=== PATIENT | male | born 1955 | race African-American/Black ===

== ENCOUNTER 2021-08-26 16:37 | Emergency (ER) | payer OTHER ==
[~2021-08-26] VITALS: Ht 172.7 cm; Wt 83.9 kg
[~2021-08-26 16:37] MED LIST: ADVAIR HFA115 MCG/21; ALBUTEROL2.5 MG/0.5 IH; ALLERGY10 M1 PO; TUSSIONEX PENN473 ML PO; ZPAK PO
[2021-08-26] MEDS ORDERED: FLEXERIL PO (19:37)
[2021-08-26] MEDS ORDERED: IBU600 MG PO (19:37)
[2021-08-26 19:50] VITALS: BP 165/93
== END 2021-08-26 19:52 | disposition home or self-care (01) ==
LOC: ER 16:37
DX: S13.4XXA Sprain of ligaments of cervical spine, initial encounter (principal); S29.012A Strain of muscle and tendon of back wall of thorax, initial encounter; J45.909 Unspecified asthma, uncomplicated; E78.5 Hyperlipidemia, unspecified; Z91.09 Other allergy status, other than to drugs and biological substances; I25.10 Atherosclerotic heart disease of native coronary artery without angina pectoris; I10 Essential (primary) hypertension; Z79.51 Long term (current) use of inhaled steroids; Z79.891 Long term (current) use of opiate analgesic; Z79.899 Other long term (current) drug therapy; Z88.2 Allergy status to sulfonamides; V49.49XA Driver injured in collision with other motor vehicles in traffic accident, initial encounter; Y93.89 Activity, other specified; Y92.89 Other specified places as the place of occurrence of the external cause; Y99.8 Other external cause status

== ENCOUNTER 2021-12-05 08:40 | Inpatient (IN) | payer MEDICARE ==
[~2021-12-05] VITALS: Ht 172.7 cm; Wt 80.1 kg
[~2021-12-05 08:40] MED LIST changes: +FLEXERIL PO; +IBU600 MG PO
[2021-12-05 08:41] VITALS: BP 172/102
[2021-12-05] MEDS ORDERED: LOSARTAN POTASS50 MG PO (08:47)
[2021-12-05] MEDS ORDERED: SINGULAIR 10 MG10 M1 PO (08:48)
[2021-12-05 09:03] LABS: ABSOLUTE NEUTROPHILS 5.3 thou/uL (1.4-8.2); BASOPHILS 0.6 % (0.0-2.0); EOSINOPHILS 2.6 % (0.0-3.0); HEMATOCRIT 46.2 % (42.0-52.0); LYMPHOCYTES 31.4 % (24.0-44.0); MCH 30.2 pg (26.0-34.0); MCHC 34.7 g/dL (28.0-37.0); MONOCYTES 8.8 % (1.0-8.0); PLATELET COUNT 293 thou/uL (150-400); POLYS 56.6 % (36.0-66.0); RBC 5.31 mil/uL (4.50-6.00); RDW 14.5 % (10.5-14.5); WBC 9.3 thou/uL (4.0-11.0)
[2021-12-05 09:17] LABS: CALCIUM 9.1 mg/dL (8.5-10.1); CREATININE 1.1 mg/dL (0.7-1.3); POTASSIUM 3.8 mmol/L (3.5-5.1)
[2021-12-05 09:28] LABS: ALBUMIN 3.9 g/dL (3.4-5.0); TOTAL BILIRUBIN 0.8 mg/dL (0.2-1.0); TOTAL PROTEIN 7.6 g/dL (6.4-8.2)
[2021-12-05 11:42] VITALS: BP 159/89
[2021-12-05 12:16] VITALS: BP 144/75
[2021-12-05 12:25] VITALS: BP 148/72
--- NOTE | 2021-12-05 13:09 | NUR ---
PT WAS TRANSFERRED FROM ER AND ARRIVED ON THE UNIT AT APPROXIMATELY 1225. PT A&OX4 AND COMMUNICATING NEEDS TO STAFF APPROPRIATELY. TELE MONITORING WAS STARTED, FALL PREVENTION EDUCATION PROVIDED AND SIGNED, ROOM ORIENTATION PROVIDED, CALL LIGHT INSTRUCTIONS PROVIDED, NEW ADMIT VITALS AND RHYTHM STRIP OBTAINED. PT HAS SOME CHEST PAIN 3/, CARDIOLOGY IS AWARE.
[2021-12-05 15:43] VITALS: BP 149/71
--- NOTE | 2021-12-05 16:35 | NUR ---
PT TRANSFERRED TO THE UNIT FROM THE ER. PT A&OX4 AND COMMUNICATING NEEDS TO STAFF APPROPRIATELY. PT HAD SOME CHEST PAIN UPON ARRIVAL TO THE UNIT. PT GIVEN TYLENOL AND NITRO, PAIN SUBSIDED. PT AMBULATED TO THE BATHROOM INDEPENDENTLY AND VOIDED WITHOUT ISSUE. PT DENIES NAUSEA, VOMITING, UPSET STOMACH, OR FEELING UNSTEADY ON THEIR FEET. PT HAD A GOOD APPETITE AND CONSUMED SNACKS AND MEALS WELL.
[2021-12-05 20:00] VITALS: BP 146/78
[2021-12-06] VITALS: BP 151/78
--- NOTE | 2021-12-06 02:13 | NUR ---
SLEEPING PAST MOROPHINE AT 2200. PATIENT STATES HIS BACK REALLY HURTS WITH MOVEMENT AND SPASMS WHICH MAKES HIM HURT ALL OVER INCLUDING CHEST AND ABDOMEN. STATES WHEN BACK SPASMS IT JOLTS EVERYTHING. REFUSES FURTHER MEDICATION AT THIS TIME STATING HE IS GOING BACK TO SLEEP. ENCOURAGED TO CALL IF HE IS UNABLE TO FALL BACK ASLEEP. NPO FOR AM STRESS TEST. CONTINUE TO ASSES.
[2021-12-06 03:05] LABS: CHOLESTEROL 170 mg/dL (<200); HDL CHOLESTEROL 68 mg/dL (>40); LDL CHOLESTEROL 92 mg/dL (<100); TC:HDL 2.5 Ratio (Not establshd); TRIGLYCERIDE 51 mg/dL (<150); VLDL 10 mg/dL (<40)
[2021-12-06 03:06] LABS: SERUM ASSESSMENT Clear
[2021-12-06 03:09] LABS: CALCIUM 8.4 mg/dL (8.5-10.1); POTASSIUM 3.7 mmol/L (3.5-5.1)
[2021-12-06 04:00] VITALS: BP 149/77
--- NOTE | 2021-12-06 06:19 | NUR ---
SLEEPING PAST FLEXERIL. NO PRESENT COMPLAINTS
--- NOTE | 2021-12-06 07:39 | EKG ---
[address] [place] [address] ELECTROCARDIOGRAM REPORT Name: HUMBERTO LAZCANO Yasmine Room #: 207- ADM IN M.R.#: [id number] Admission: 12/05/21 Attend Phys: Juanpablo Maharaj MD Discharge: Date of : 53 Report #: [id number] [facility] ED Test Date: 2021-12-05 Test Time: 08:42:57 Pat Name: HUMBERTO LAZCANO Department: Room: 207 Gender: M Continuous Churn Buttermaker: CHANTELLE : 1955 Requested By: Alexis Darby Order Number: [id number] MD: Wyatt Diana Measurements Intervals [place] Rate: 71 P: -25 DE: 134 QRS: -7 QRSD: 93 T: 138 QT: 395 QTc: 430 Interpretive Statements Sinus rhythm Abnormal T, consider ischemia, lateral leads ST elevation, consider anterior injury Compared to ECG 05/13/2014 06:02:42 T-wave abnormality now present Possible ischemia now present ST (T wave) deviation now present Myocardial infarct finding now present Early repolarization no longer present Electronically Signed On 12-06-2021 7:39:29 PRECISION OPTICS TECHNICIAN by Wyatt Diana [email or web address] <ELECTRONICALLY SIGNED> By: Wyatt Diana MD, FAC 12/06/21 0739 0842 0842 Wyatt Diana MD, [facility] /EPI
--- NOTE | 2021-12-06 07:42 | EKG ---
[address] [place] [address] ELECTROCARDIOGRAM REPORT Name: HUMBERTO LAZCANO Yasmine Room #: 207- ADM IN M.R.#: [id number] Admission: 12/05/21 Attend Phys: Juanpablo Maharaj MD Discharge: Date of : 53 Report #: [id number] [facility] Test Date: 2021-12-06 Test Time: 07:25:08 Pat Name: HUMBERTO LAZCANO Department: Room: 207 P Gender: M Bus Girl: APPLE : 1955 Requested By: Juanpablo Maharaj Order Number: [id number] MD: Wyatt Diana Measurements Intervals [place] Rate: 69 P: 1 RI: 139 QRS: -7 QRSD: 91 T: 62 QT: 392 QTc: 420 Interpretive Statements Sinus rhythm Abnormal R-wave progression, early transition Minimal ST elevation, anterior leads Compared to ECG 12/05/2021 08:42:57 T-wave abnormality no longer present Possible ischemia no longer present Myocardial infarct finding no longer present ST (T wave) deviation still present Electronically Signed On 12-06-2021 7:42:10 PORTER LUGGAGE by Wyatt Diana [email or web address] <ELECTRONICALLY SIGNED> By: Wyatt Diana MD, FAC 12/06/2142 4 4 Wyatt Diana MD, [facility] /EPI
[2021-12-06 08:00] VITALS: BP 150/80
--- NOTE | 2021-12-06 11:35 | 2DMMODE ---
[facility] [place] [address] 2 D/M-MODE ECHOCARDIOGRAM Name: HUMBERTO LAZCANO Room #: 207-P ADM IN M.R.#: [id number] Admission: 12/05/21 Attend Phys: Juanpablo Maharaj MD Discharge: Date of : 53 Report #: [id number] THIS REPORT FOR: cc: Jaz Fajardo MD, Melanie MD Lammoglia, Francisco J. MD ~ APPROVED REPORT Study performed: 12/06/2021 10:01:28 EXAM: Comprehensive 2D, Doppler, and color-flow Echocardiogram Patient Location: Bedside Room #: 207 Status: routine BSA: 1.89 HR: 60 bpm BP: 150/80 mmHg Rhythm: NSR Other Information Study Quality: Good Indications CAD Chest Pain Hypertension/HDD 2D Dimensions IVSd: 12.03 (7-11mm) LVOT Diam: 21.81 (18-24mm) LVDd: 50.82 mm PWd: 11.71 (7-11mm) Ascending Ao: 31.26 (22-36mm) LVDs: 26.18 (25-40mm) Left Atrium: 39.34 (27-40mm) Aortic Root: 26.44 mm IVC: 19.00 mm Volumes Left Atrial Volume (Systole) Single Plane 4CH: 57.34 mL Single Plane 2CH: 47.28 mL LA ESV Index: 32.00 mL/m2 Aortic Valve AoV Peak Chris.: 1.52 m/s AO Peak Gr.: 9.19 mmHg LVOT Max P.46 mmHg LVOT Max V: 1.06 m/s [facility] [email or web address] [address] 2 D/M-MODE ECHOCARDIOGRAM Name: HUMBERTO LAZCANO Room #: 207-P [facility]#: [id number] Admission: 12/05/21 Attend Phys: Juanpablo Maharaj MD Discharge: Date of : 53 Report #: [id number] PILO Vmax: 2.60 cm2 Mitral Valve E/A Ratio: 0.8 MV Decel. Time: 186.66 ms MV E Max Chris.: 0.71 m/s MV A Chris.: 0.91 m/s MV PHT: 54.13 ms IVRT: 138.41 ms Pulmonary Valve PV Peak Chris.: 0.96 m/s PV Peak Gr.: 3.71 mmHg Pulmonary Vein P Vein S: 0.56 m/s P Vein A: 0.36 m/s P Vein D: 0.34 m/s P Vein A Dur.: 106.1 msec P Vein S/D Ratio: 1.65 Tricuspid Valve TR Peak Chris.: 3.25 m/s TR Peak Gr.: 42.16 mmHg PA Pressure: 47.00 mmHg Left Ventricle The left ventricle is normal size. There is normal LV segmental wall motion. Mild concentric left ventricular hypertrophy. The left ventricular systolic function is normal. The left ventricular ejection fraction is within the normal range. LVEF is 60-65%. Grade I - abnormal relaxation pattern. Right Ventricle The right ventricle is normal size. The right ventricular systolic function is normal. Atria The left atrium size is normal. The right atrium size is normal. Aortic Valve The aortic valve is normal in structure. No aortic regurgitation is present. There is no aortic valvular stenosis. Mitral Valve The mitral valve is normal in structure. There is no mitral valve regurgitation noted. No evidence of mitral valve stenosis. [facility] [address] [place] [address] 2 D/M-MODE ECHOCARDIOGRAM Name: HUMBERTO LAZCANO Room #: 207-P [facility] IN .R.#: [id number] Admission: 12/05/21 Attend Phys: Juanpablo Maharaj MD Discharge: Date of : 53 Report #: [id number] Tricuspid Valve The tricuspid valve is normal in structure. There is trace tricuspid regurgitation. Estimated PAP 47 mmHg. There is moderate pulmonary hypertension. Pulmonic Valve The pulmonary valve is normal in structure. There is no pulmonic valvular regurgitation. Great Vessels The aortic root is normal in size. IVC is normal in size and collapses >50% with inspiration. Pericardium There is no pericardial effusion. <Conclusion> The left ventricle is normal size. Mild concentric left ventricular hypertrophy. LVEF is 60-65%. The right ventricle is normal size. The left atrium size is normal. The aortic valve is normal in structure. The mitral valve is normal in structure. The tricuspid valve is normal in structure. There is trace tricuspid regurgitation. Estimated PAP 47 mmHg. There is moderate pulmonary hypertension. The pulmonary valve is normal in structure. The aortic root is normal in size. There is no pericardial effusion. <ELECTRONICALLY SIGNED> By: Cole Bolanos MD 12/06/21 1134 1134 1134 Cole Bolanos MD /INF
--- NOTE | 2021-12-06 11:39 | NUR ---
Pt ADMITTED FOR CHEST PAIN, SOA, AND UNSTABLE ANGINA. 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 AMB IN COMMUNITY AND AROUND HOUSE WITHOUT AD. Pt HAS BEEN UP AD ARIEL IN ROOM AND STATES NO CONCERNS AT THIS TIME WITH MOBILITY. Pt IS SAFE TO DC FROM A MOBILITY STANDPOINT.
--- NOTE | 2021-12-06 11:56 | NUR ---
I have reviewed the documentation by DENISE PATRICIA from 12/06/21 to 12/06/21 and I concur with it. ROSY HUTCHINS, PT, DPT
[2021-12-06 15:20] VITALS: BP 144/83
--- NOTE | 2021-12-06 16:43 | NUR ---
PATIENT ADMITTED FOR CHEST PAIN, SOA. CM MET WITH PT THIS DAY. PT REPORT NO NEEDS ONCE MEDICALLY STABLE TO DC. PT HAS PT ORDERS. PT SIGNED OFF INDICATING NO NEEDS ONCE MEDICALLY STABLE TO DC. NO FUTHER CM INTERVENTIONS INDICATED.
[2021-12-06 19:30] VITALS: BP 158/90
[2021-12-07 03:15] VITALS: BP 167/94
--- NOTE | 2021-12-07 03:43 | NUR ---
SLEEPING PART OF SHIFT. PAIN MEDICATION GIVEN FOR PAIN CONTROL PER ORDERS. UP AD ARIEL IN ROOM. WORKING ON GOALS AND PLAN OF CARE FOR DAY. NPO PAST [place] FOR AM HEART CATH. CONTINUE TO ASSES CLOSELY.
[2021-12-07 08:00] VITALS: BP 150/78
[2021-12-07 11:50] VITALS: BP 141/79
[2021-12-07 12:16] LABS: CALCIUM 8.5 mg/dL (8.5-10.1)
[2021-12-07 15:55] VITALS: BP 153/76
--- NOTE | 2021-12-07 15:59 | NUR ---
PT UNABLE TO RECEIVE HEART CATH TODAY D/T CONGESTED ELECTRICAL TEST ENGINEER SCHEDULE. PLAN FOR PT TO RECEIVE HEART CATH TOMORROW.
[2021-12-07 19:19] VITALS: BP 146/85
[2021-12-07 23:51] VITALS: BP 135/75
[2021-12-08 03:35] VITALS: BP 159/80
[2021-12-08 07:50] VITALS: BP 160/73
--- NOTE | 2021-12-08 08:04 | NUR ---
PT IS AXOX4, PLEASANT; VSS, AFEBRILE, SR ON THE MONITOR. PT TO GO TODAY FOR CARDIAC CATH. NPO SINCE MIDNIGHT. AT THE BEDSIDE. NO CONCERNS AT THIS TIME.
[2021-12-08 11:40] VITALS: BP 151/70
[2021-12-08 16:00] VITALS: BP 156/76
[2021-12-08] MEDS ORDERED: DOXYCYCLINE 10100 MG PO (16:30)
[2021-12-08] MEDS ORDERED: PREDNISONE 20 M20 MG PO (16:30)
[2021-12-08] MEDS ORDERED: FLOVENT HFA12 GM INH (16:31)
[2021-12-08] MEDS ORDERED: LIPITOR40 MG PO (16:32)
[2021-12-08] MEDS ORDERED: IMDUR 30 MG TAB30 M1 PO (16:32)
[2021-12-08 16:55] VITALS: BP 156/76
--- NOTE | 2021-12-09 10:04 | CATHLAB ---
[facility] [place] [address] INVASIVE PROCEDURE REPORT Name: HUMBERTO LAZCANO Room #: 207-P [facility] IN M.R.#: [id number] Admission: 12/05/21 Attend Phys: Juanpablo Maharaj MD Discharge: 12/08/21 Date of : 53 Report #: [id number] THIS REPORT FOR: cc: Jaz Fajardo MD, Melanie MD Lammoglia, Francisco J. MD ~ APPROVED REPORT Study performed: 12/08/2021 10:40:45 Patient Details Patient Status: In-Patient Room #: The patient is a 66 year-old male Event Personnel Cole Bolanos Plisse Machine Operator, Elsa Sandoval RTR, LEGAL CONTRACTS SPECIALIST Monitor, Reta Mcdonough RTR Monitor, Grady Sin LEGAL CONTRACTS SPECIALIST ScrubCarl Jessica RN concept artist Performed Art Access - R femoral artery* Left Heart Cath w/or w/o Coronaries [id number] [facility] [address] Initial Mod Sed Same Phys/QHP Gr5y 618373 Hemostasis with Manual pressure 65463 Mod Sed Same Phys/QHP Ea [id number], supervision conscious sedation Indication Positive stress test, Chest pain Procedure Narrative The Right Groin^ was infiltrated with 1% Lidocaine subcutaneous anesthesia. A PINNACLE 4FR Sheath #[id number] sheath was inserted into the RFA^. Coronary angiography was performed using coronary diagnostic catheters. The right coronary system was accessed and visualized with a JR4 catheter. The left coronary system was accessed and visualized with a JL4 catheter. The left ventricle was accessed and visualized with a ANGLED PIGTAIL catheter. Left ventricular/Aortic Valve gradient assessed via catheter pullback. Hemostasis was obtained with manual pressure following sheath removal without any complications. The patient tolerated the procedure well and there were no complications associated with the procedure. There was no hematoma. Intraoperative Conscious Sedation Sedation start time: 10:57 Case end Time: [facility] [place] [address] [address] INVASIVE PROCEDURE REPORT Name: HUMBERTO LAZCANO Room #: 207-P [facility] IN ..#: [id number] Admission: 12/05/21 Attend Phys: Juanpablo Maharaj MD Discharge: 12/08/21 Date of : 53 Report #: [id number] 11:27 Versed 2 mg Fluoro Time: 1.41 minutes Dose: DAP 2379.30 cGycm2 346 mGy Contrast Type and Amount: Omnipaque 55 ml Coronary Angiography The patient's coronary anatomy is left dominant. Diagnostic Cath Left Main Large-caliber vessel normal origin bifurcates left anterior single circumflex. There is a mild distal taper which is hemodynamically insignificant LAD Moderate caliber type III vessel that proceeds in the AV groove giving rise to several diagonal branches. There is irregularities noted proximally into the distal third there is a region of narrowing which appears to be approximately 50%. It does not appear to impair flow. Diagonal branches are noted with irregularities present but no high-grade lesions noted Diagonal 1 Diminutive size vessel with a proximal lesion Diagonal 2 Diminutive size vessel Diagonal 3 Small caliber vessel along with the other diagonal branches which are free of high-grade disease Circumflex Large-caliber nondominant vessel gives rise to an early marginal branch which is moderate in size and has a less than 50% ostial lesion that then continues on the lateral aspect of the heart. The circumflex proper continues on giving rise to a bifurcating second marginal branch which has a prior stent which has only mild restenosis in it. The circumflex continues in the posterior AV groove is a small caliber vessel OM1 Moderate caliber vessel with a nonobstructive ostial lesion noted OM2 Small caliber vessel with patent stent beyond the stent the vessel bifurcates into 2 branches 1 diminutive and one small diminutive has diffuse disease noted Right Coronary Small caliber dominant vessel of normal origin proceeds in AV groove giving rise to atrial and ventricular branches were then continues to the crux of the heart giving rise to a posterior descending artery which is small in caliber and terminates as a posterior wall branch luminal irregularities are noted but no high-grade lesions are present R PDA Small caliber vessel without high-grade lesion Left Ventriculography [facility] [address] [place] [address] INVASIVE PROCEDURE REPORT Name: JALEESAHUMBERTO L Room #: 207-P [facility] IN M.R.#: [id number] Admission: 12/05/21 Attend Phys: Juanpablo Maharaj MD Discharge: 12/08/21 Date of : 53 Report #: [id number] Left Ventriculography was not performed. Hemodynamics The aortic pressure is 159/74 mmHg with a mean of 96 mmHg. The left ventricular pressure is 184/20 mmHg with a mean of mmHg. The left ventricular end diastolic pressure is 47 mmHg. Conclusion 1. Coronary disease, two-vessel nonobstructive 2. Patent left circumflex marginal branch stent 3. Normal hemodynamic Recommendations Cardiac Risk Reduction Program Medical Therapy <ELECTRONICALLY SIGNED> By: Cole Bolanos MD 12/09/21 1004 03 03 Cole Bolanos MD /INF
[2021-12-09] MEDS ORDERED: FLOVENT HFA 4444 MCG INH (10:06)
== END 2021-12-08 17:39 | disposition home or self-care (01) | DRG 286 ==
LOC: ER 08:40 → 2N 11:44 → EROBS 11:44 → 2N 12:16
PROVIDERS: Emergency Medicine; Internal Medicine; ADMIT Internal Medicine; ATTEND Internal Medicine
DX: I25.110 Atherosclerotic heart disease of native coronary artery with unstable angina pectoris (principal); I50.31 Acute diastolic (congestive) heart failure; Z20.822 Contact with and (suspected) exposure to COVID-19; J45.909 Unspecified asthma, uncomplicated; E78.5 Hyperlipidemia, unspecified; E66.9 Obesity, unspecified; Z88.2 Allergy status to sulfonamides; Z82.49 Family history of ischemic heart disease and other diseases of the circulatory system; Z68.26 Body mass index [BMI] 26.0-26.9, adult; Z95.5 Presence of coronary angioplasty implant and graft; Z79.899 Other long term (current) drug therapy; I11.0 Hypertensive heart disease with heart failure
CPT/HCPCS: 10081